=== PATIENT | male | born 1955 | race Caucasian/White ===

== ENCOUNTER 2019-03-30 06:14 | Inpatient (IN) | payer OTHER, BC ==
[2019-03-16 14:48] VITALS: BMI 34.9
[2019-03-30] MEDS ORDERED: TRANEXAMIC ACID 1000 MG/10 ML VIAL IVPUSH ONE (07:10)
[2019-03-30] MEDS ORDERED: CELECOXIB 200 MG CAPSULE PO ONE (07:10)
[2019-03-30] MEDS ORDERED: CEFAZOLIN 2 GM/D5W 2 GM/50 ML ML IVPB ONE (07:10)
[2019-03-30] MEDS ORDERED: CELECOXIB 200 MG CAPSULE ONE (07:42)
--- NOTE | 2019-03-30 07:58 | HP ---
Satellite [facility] - Chief Complaint Chief Complaint: right hip pain - Past Medical History Allergies/Adverse Reactions: Allergies Allergy/AdvReac Type Severity Reaction Status Date / Time No Known Allergies Allergy Verified 03/30/19 07:43 - Current Medications Current Medications: Home Medications Medication Instructions Recorded Aspirin [ASA -] 81 mg PO DAILY 03/16/19 Atorvastatin Ca [Lipitor] 40 mg PO HS 03/16/19 Bisoprolol Fumarate 5 mg PO DAILY 03/16/19 Clopidogrel Bisulfate [Plavix] 75 mg PO DAILY 03/16/19 Glipizide Xl [Glucotrol Xl -] 5 mg PO DAILY 03/16/19 [place]-3 Fatty Acids/Fish Oil [Fish 1 each PO QID 03/16/19 Oil 1,000 mg Capsule] Tamsulosin HCl [Flomax] 0.4 mg PO DAILY 03/16/19 Satellite Physical Exam - Physical Examination Vital Signs: Vital Signs Period Temp Pulse Resp BP Sys/Ty Pulse Ox Last 24 Hr 97.6 F 69 18 126/76 General Appearance: Well Nourished, Well Developed, Alert & Oriented x3 ENT: Clear Lung: Normal air movement Extremities: Other (right hip- + ttp, decr rom, nvi, xrays show grade 4 hip djd) Neurological: Intact, Alert, Oriented Satellite Impression/Plan - Impression/Plan Impression: right hip djd Operative Procedure: right rochelle thr Date to be Performed: 03/30/19
[2019-03-30] MEDS ORDERED: MIDAZOLAM HCL 2 MG/2 ML SINGLE DOSE VIAL ONE (08:00)
[2019-03-30] MEDS ORDERED: DEXAMETHASONE SOD PHOSPHATE/PF 10 MG/ML SDV ONE (08:08)
[2019-03-30] MEDS ORDERED: VANCOMYCIN 1,000 MG VIAL (RESTRICTED TO ID ONLY) ONE (09:10)
[2019-03-30] MEDS ORDERED: ceFAZolin SODIUM 1 GM VIAL ONE ×2 (09:10→09:51)
[2019-03-30] MEDS ORDERED: PROPOFOL 20 ML ONE (09:29)
[2019-03-30] MEDS ORDERED: SUCCINYLCHOLINE CHLORIDE 200 MG/10 ML SYRINGE ONE (09:29)
[2019-03-30] MEDS ORDERED: ONDANSETRON 4 MG/2 ML VIAL IVPUSH PRN ×2 (09:42→11:52)
[2019-03-30] MEDS ORDERED: MAG HYDROX/AL HYDROX/SIMETH 30 ML UNIT-DOSE CUP PO PRN (09:42)
[2019-03-30] MEDS ORDERED: MAGNESIUM HYDROX 2400MG/30ML ORAL SUSPENSION 30 ML CUP PO PRN (09:42)
[2019-03-30] MEDS ORDERED: ROCURONIUM BROMIDE 50 MG/5 ML VIAL ONE (09:43)
[2019-03-30] MEDS ORDERED: TRANEXAMIC ACID 1000 MG/10 ML VIAL ONE ×2 (09:43→11:06)
[2019-03-30] MEDS ORDERED: LACTATED RINGERS SOLUTION 1,000 ML IV SCH ×2 (09:45→12:00)
[2019-03-30] MEDS ORDERED: DEXAMETHASONE SOD PHOSPHATE 4 MG/1 ML VIAL ONE (09:50)
[2019-03-30] MEDS ORDERED: CLOPIDOGREL BISULFATE 75 MG TABLET (FP) PO SCH (10:00)
[2019-03-30] MEDS ORDERED: PATIENT'S OWN MEDICATION (NON-FORMULARY) (Bisoprolol Fumarate [Bisoprolol Fumarate] 5 MG) PO SCH (10:00)
[2019-03-30] MEDS ORDERED: ASPIRIN 81 MG CHEWABLE TABLETS PO SCH (10:00)
[2019-03-30] MEDS ORDERED: NEOSTIGMINE METHYLSULFATE 0.5 MG/ML - 10 ML MDV ONE (10:56)
[2019-03-30] MEDS ORDERED: GLYCOPYRROLATE 0.2 MG/1 ML VIAL ONE (10:57)
[2019-03-30] MEDS ORDERED: ONDANSETRON 4 MG/2 ML VIAL ONE ×2 (10:59→11:46)
--- NOTE | 2019-03-30 11:17 | OP ---
Operative Note - Note: Operative Date: 03/30/19 (liz) Pre-Operative Diagnosis: right hip djd Operation: right rochelle thr Post-Operative Diagnosis: Same as Pre-op Surgeon: Leonardo Levine Inbound [employer]ient Logistics Specialist: Justin Butcher Anesthesiologist/WORD PROCESSOR OPERATOR: Brissa Abdalla Anesthesia: Spinal, Local Specimens Removed: femoral head Estimated Blood Loss (mls): 200
[2019-03-30] MEDS: Insulin (LOG) Aspart 100 UNITS/ML VIAL SQ ONE ×2 (11:50→12:45)
[2019-03-30] MEDS ORDERED: oxyCODONE HCL 5 MG TABLET PO PRN (11:52)
[2019-03-30] MEDS ORDERED: ACETAMINOPHEN 1000 MG/100 ML VIAL (NON FORMULARY) IVPB ONE (11:52)
--- NOTE | 2019-03-30 12:01 | SPEC ---
DATE OF OPERATION: 03/30/2019 PREOPERATIVE DIAGNOSIS: Degenerative joint disease, right hip. POSTOPERATIVE DIAGNOSIS: Degenerative joint disease, right hip. PROCEDURE PERFORMED: Right total hip replacement with robotic-assisted navigation (MAKOplasty). SURGICAL ATTENDING: Leonardo Levine MD CHANCELLOR: MONISHA Soliz ANESTHESIA: Regional and general. CLOSURE: A [place] hip system with a 52 Trident II press-fit acetabular shell and Number 8 Accolade II press-fit femoral stem. A 36, +2.5 ceramic femoral head. Number 1 Vicryl for fascia, 0 and 2-0 subcutaneous, 3-0 V-Loc for skin, 4-0 undyed Vicryl for pin sites. ESTIMATED BLOOD LOSS: Approximately 150 mL. COMPLICATIONS: None. CONDITION: To the recovery room in stable condition. DESCRIPTION OF PROCEDURE: The patient was taken to the operating room on March 30, 2019. General and regional anesthesia was administered by the anesthesiologist. IV Kefzol and TXA were administered prophylactically prior to the case. The patient was placed in the lateral decubitus position will all prominences well-padded. The right hip area was prepped and draped in the usual sterile fashion. Using 3 small stab incisions over the iliac crest, 3 threaded pins were drilled in power fashion through the 2 tables of the crest. These pins were fastened and the navigation array for the [place] navigation system. Next, a 12 to 15-cm curved longitudinal incision over the posterolateral aspect of the greater trochanter was incised. Hemostasis was achieved with Bovie cautery. Sharp dissection was carried down to level of the fascia. The fascia was opened the entire length of the incision, spreading the fibers of the gluteus santy in the direction of origin. A Charnley retractor was placed in this layer. Care was taken not to impale the sciatic nerve. The short external rotators were detached off the insertion of the greater trochanter and peeled off the capsule. A posterior capsulotomy was then performed. A check point was malleted into the greater trochanter and a point on the inferior pole of the patella was obtained as well. These 2 points were used to assess the preoperative offset and limb lengths of the hip. The hip was then dislocated. The femoral neck was then osteotomized down to the appropriate level as directed by the navigation device. Anterior and posterior retractors were placed, exposing the acetabulum. A circumferential labral excision was performed. A check point was malleted into the acetabulum as well. Multiple sites inside the acetabulum and around the rim were utilized to register the acetabulum with the navigation device. An excellent registration of less than 0.5 mm was obtained. The hip was then reamed with the appropriate reamer down to the appropriate depth, with the appropriate orientation and version as assessed on our preoperative plan for this patient. The reamer was removed and the acetabulum was inspected to have good bleeding surfaces throughout. The real acetabular cup was then malleted down into place, with the holes in the appropriate position, until an excellent fixation was obtained. No screws were necessary. The navigation device ensured appropriate orientation and version, with the depth as predetermined. The appropriate liner was then clipped into place. Attention was directed to the femur. The proximal femur was prepared by use a box chisel, a canal finder and serial broaches until the broach achieved excellent rigidity in the proximal femur with the appropriate version being applied. A calcar planer was used to smooth off the calcar flush with the trial components. A trial reduction with the appropriate head was done, and the hip was reduced. The hip was taken through a range of motion from full extension with external rotation to marked flexion and was stable at 90 degrees of flexion. It was stable to marked abduction and internal rotation, with a positive hang test and negative telescoping. Limb lengths were ascertained visually as well as with the navigation device to be within the targeted range for this patient. The trial component was removed. The real component was then malleted into place. The head was cold welded to the trunnion, and the hip was reduced. Range of motion, stability and limb lengths were as described in the trial component. Then the hip was pulse antibiotic irrigated. Vancomycin powder was placed in the hip joint. The capsule was closed. The fascia was then closed as well using number 1 Vicryl interrupted suture, 0 and 2-0 subcutaneous, and 3-0 V-Loc for the skin, 4-0 undyed Vicryl was used to close the pin sites after the pins were removed. All check points were also removed. Sterile Aquacel dressing was applied. The patient was awakened from anesthesia and transferred into the supine position. Bilateral SCDs, and an abduction pillow were placed. X-rays revealed excellent position of the components. The patient was transferred to the recovery room in stable condition, with no complications. Estimated blood loss was less than 100 mL. Manuela MAIER/[id number]
[2019-03-30] MEDS ORDERED: ACETAMINOPHEN INJECTION 100 ML IVPB ONE (12:15)
[2019-03-30] MEDS ORDERED: oxyCODONE HCL 5 MG TABLET ONE (12:41)
[2019-03-30] MEDS: oxyCODONE HCL 5 MG TABLET PO PRN ×4 (12:46→23:16)
[2019-03-30] MEDS: INSULIN SLIDING SCALE (NOVOLOG) 1 VIAL SQ SCH ×2 (18:03→21:40)
[2019-03-30] MEDS: CEFAZOLIN 2 GM/D5W 2 GM/50 ML ML IVPB SCH (18:04)
[2019-03-30] MEDS: SENNOSIDES/DOCUSATE COMBO (SENNA PLUS) TABLET (UD) PO SCH (21:36)
[2019-03-30] MEDS: ATORVASTATIN CA 40 MG TABLET (FP) PO SCH (21:36)
[2019-03-30] MEDS: TAMSULOSIN HCL 0.4 MG CAP PO SCH (21:37)
[2019-03-30] MEDS: oxyCODONE HCL 10 MG SUSTAINED ACTING TABLET PO SCH (21:37)
[2019-03-31] MEDS: CEFAZOLIN 2 GM/D5W 2 GM/50 ML ML IVPB SCH (01:13)
[2019-03-31] MEDS: oxyCODONE HCL 5 MG TABLET PO PRN ×4 (06:42→23:48)
[2019-03-31] MEDS: glipiZIDE-XL 5 MG TAB.ER.24 PO SCH (06:43)
[2019-03-31] MEDS: INSULIN SLIDING SCALE (NOVOLOG) 1 VIAL SQ SCH ×3 (06:47→22:06)
[2019-03-31 08:04] LABS: HEMATOCRIT 31.3 % (35.4-49); HEMOGLOBIN 9.6 GM/dl (11.7-16.9); MCH 20.8 pg (25.7-33.7); MCHC 30.5 g/dl (32.0-35.9); MEAN PLT VOLUME 8.3 fl (7.5-11.1); PLATELET COUNT 147 K/MM3 (134-434); RBC 4.59 M/mm3 (4.00-5.60); RDW 14.7 % (11.9-15.9); WHITE BLOOD COUNT 7.5 K/mm3 (4.0-10.8)
[2019-03-31] MEDS: ATENOLOL 50 MG TABLET (FP) PO SCH (09:31)
[2019-03-31] MEDS: SENNOSIDES/DOCUSATE COMBO (SENNA PLUS) TABLET (UD) PO SCH ×2 (09:31→21:16)
[2019-03-31] MEDS: PANTOPRAZOLE 40 MG TABLET (FP) PO SCH (09:32)
[2019-03-31] MEDS: MULTIVITAMINS (DAILY MVI) TABLET (FP) PO SCH (09:32)
[2019-03-31] MEDS: oxyCODONE HCL 10 MG SUSTAINED ACTING TABLET PO SCH (09:32)
[2019-03-31] MEDS: CLOPIDOGREL BISULFATE 75 MG TABLET (FP) PO SCH (09:32)
[2019-03-31] MEDS: ASPIRIN 81 MG CHEWABLE TABLETS PO SCH (09:33)
--- NOTE | 2019-03-31 09:41 | PN ---
Progress Note (short form) - Note Progress Note: Ortho Pt seen and examined s/p right rochelle thr pod #1 Selected Entries 03/31/19 06:00 Temperature 98.2 F Pulse Rate 77 Respiratory 17 Rate Blood Pressure 117/64 Laboratory Tests 03/31/19 07:09 WBC 7.5 Hgb 9.6 L Hct 31.3 L Plt Count 147 dressing c/d/i, calf soft, nt nvi a/p PT hip precautions dvt ppx pain control ok to d/c home today if stable after PT
--- NOTE | 2019-03-31 09:44 | PN ---
Progress Note, Physician Chief Complaint: AWAKE ALERT OFFERS NO COMPLAINTS DENIES FEVER OR CHILLS NO BM YET - Current Medication List Current Medications: Active Medications Al Hydroxide/Mg Hydroxide (Mylanta Oral Suspension -) 30 ml PO Q4H PRN PRN Reason: DYSPEPSIA Aspirin (Asa -) 81 mg PO DAILY [facility] Last Admin: 03/31/19 09:33 Dose: 81 mg Atenolol (Tenormin -) 50 mg PO DAILY [facility] Last Admin: 03/31/19 09:31 Dose: 50 mg Atorvastatin Calcium (Lipitor -) 40 mg PO HS [facility] Last Admin: 03/30/19 21:36 Dose: 40 mg Clopidogrel Bisulfate (Plavix -) 75 mg PO DAILY [facility] Last Admin: 03/31/19 09:32 Dose: 75 mg Glipizide (Glucotrol Xl -) 5 mg PO ACBK [facility] Last Admin: 03/31/19 06:43 Dose: 5 mg Lactated Ringer's (Lactated Ringers Solution) 1,000 mls @ 125 mls/hr IV ASDIR [facility] Last Admin: 03/30/19 14:14 Dose: 0 mls Insulin Aspart (Novolog Vial Sliding Scale -) 1 vial SQ ACHS [facility]; Protocol Last Admin: 03/31/19 06:47 Dose: 4 units Magnesium Hydroxide (Milk Of Magnesia -) 30 ml PO PRN PRN PRN Reason: CONSTIPATION Multivitamins/Minerals/Vitamin C (Tab-A-Vit -) 1 tab PO DAILY [facility] Last Admin: 03/31/19 09:32 Dose: 1 tab Ondansetron HCl (Zofran Injection) 4 mg IVPUSH Q6H PRN PRN Reason: NAUSEA Last Admin: 03/30/19 11:55 Dose: 4 mg Ondansetron HCl (Zofran Injection) 4 mg IVPUSH Q6H PRN PRN Reason: NAUSEA AND/OR VOMITING Oxycodone HCl (Roxicodone -) 10 mg PO Q3H PRN PRN Reason: PAIN LEVEL 6-10 Last Admin: 03/31/19 06:42 Dose: 10 mg Oxycodone HCl (Roxicodone -) 5 mg PO Q3H PRN PRN Reason: PAIN LEVEL 1-5 Last Admin: 03/31/19 02:33 Dose: 5 mg Oxycodone HCl (Oxycontin -) 10 mg PO BID [facility] Stop: 03/31/19 21:59 Last Admin: 03/31/19 09:32 Dose: 10 mg Pantoprazole Sodium (Protonix -) 40 mg PO DAILY [facility] Last Admin: 03/31/19 09:32 Dose: 40 mg Senna/Docusate Sodium (Pericolace -) 2 tablet PO BID [facility] Last Admin: 03/31/19 09:31 Dose: 2 tablet Tamsulosin HCl (Flomax -) 0.4 mg PO DAILY@2200 [facility] Last Admin: 03/30/19 21:37 Dose: 0.4 mg - Objective Vital Signs: Vital Signs Temperature 98.2 F 03/31/19 06:00 Pulse Rate 77 03/31/19 06:00 Respiratory Rate 16 03/31/19 08:24 Blood Pressure 117/64 03/31/19 06:00 O2 Sat by Pulse Oximetry (%) 98 03/31/19 08:24 Constitutional: Yes: Mild Distress Cardiovascular: Yes: Regular Rate and Rhythm Respiratory: Yes: WNL Gastrointestinal: Yes: Soft, Abdomen, Obese Genitourinary: Yes: WNL Musculoskeletal: Yes: Muscle Pain Edema: No Integumentary: Yes: WNL Wound/Incision: Yes: Clean/Dry Neurological: Yes: WNL ...Motor Strength: LLE, RLE Psychiatric: Yes: WNL Labs: CBC, BMP 03/31/19 07:09 Assessment/Plan S/P RIGHT HIP JAIMEE USING WALKER AND WALKING WITH SOME DIFFICULTY RECOMMEND TO CONTINUE REHAB HERE AT [facility] FOR 1 MORE DAY ORTHOPEDIC F/U APPRECIATED BGM CONTROLLED ADDING STOOL SOFTENERS TO COUNTERACT OPIOD BOWEL PAIN CONTROLLED AT THIS POINT H/O CAD S/P STENT X2 DENIES CHEST PAIN ON ASA/PLAVIX/ATENOLOL/LIPITOR CONTINUE. HANNAH STOCKING ALSO ON/B/L LEGS DC PLANNING TOMORROW
--- NOTE | 2019-03-31 09:58 | PN ---
Progress Note (short form) - Note Progress Note: 63M POD1 s/p R THR under spinal anesthetic with peripheral nerve block for post operative pain relief doing well. Pt states that pain is well controlled and reports no anesthetic complications. AVSS. Continue current regimen.
[2019-03-31] MEDS ORDERED: INSULIN (NOVOLOG) ASPART 100 UNITS/ML 10ML VIAL ONE ×2 (12:13→22:03)
[2019-03-31] MEDS: ATORVASTATIN CA 40 MG TABLET (FP) PO SCH (21:17)
[2019-03-31] MEDS: TAMSULOSIN HCL 0.4 MG CAP PO SCH (21:17)
--- NOTE | 2019-04-01 00:10 | HOSP ---
Subjective - Review of Symptoms Events since last encounter: Summoned to patient's room as patient complaining of swollen testes and difficulty urinating. Patient seen and examined, MELISSA Mendez present during exam. Subj: patient feels his scotum is slightly swollen and it is taking him longer than usual to urinate. Denies pain, dysuria, hematuria, frequency, urgency. Takes flomax on a daily basis, follows with a urologist annually, last exam was unremarkable with normal PSA. Exam: Scrotum: no significant swelling, no erythema, no tenderness on palpation, no discharge Bladder scan: 50cc's Assessment --difficulty urinating may be positional as patient usually stands and is now using a urinal --swelling is not appreciable, may be mild dependent edema, should improve with mobilization --monitor renal function, bmp in am Physical Examination Vital Signs: Vital Signs Temperature 99.0 F 03/31/19 21:12 Pulse Rate 88 03/31/19 21:12 Respiratory Rate 19 03/31/19 21:12 Blood Pressure 112/53 L 03/31/19 21:12 O2 Sat by Pulse Oximetry (%) 96 03/31/19 21:12 Labs: CBC, BMP 03/31/19 07:09
[2019-04-01] MEDS: oxyCODONE HCL 5 MG TABLET PO PRN ×3 (02:53→09:19)
[2019-04-01] MEDS: glipiZIDE-XL 5 MG TAB.ER.24 PO SCH (06:11)
[2019-04-01] MEDS: INSULIN SLIDING SCALE (NOVOLOG) 1 VIAL SQ SCH ×2 (06:12→11:41)
[2019-04-01 08:13] LABS: HEMATOCRIT 27.8 % (35.4-49); HEMOGLOBIN 8.7 GM/dl (11.7-16.9); MCH 21.2 pg (25.7-33.7); MCHC 31.2 g/dl (32.0-35.9); MEAN CELL VOLUME 67.8 fl (80-96); MEAN PLT VOLUME 8.1 fl (7.5-11.1); PLATELET COUNT 131 K/MM3 (134-434); RDW 14.8 % (11.9-15.9); WHITE BLOOD COUNT 5.9 K/mm3 (4.0-10.8)
[2019-04-01 08:17] LABS: CREATININE 0.8 mg/dl (0.55-1.3); POTASSIUM 3.6 mmol/L (3.5-5.1)
--- NOTE | 2019-04-01 08:32 | PN ---
Progress Note (short form) - Note Progress Note: Ortho Pt seen and examined s/p right rochelle thr pod #2 Selected Entries 04/01/19 05:00 Temperature 97.8 F Pulse Rate 84 Respiratory 18 Rate Blood Pressure 112/60 Laboratory Tests 04/01/19 07:20 WBC 5.9 Hgb 8.7 L Hct 27.8 L Plt Count 131 L dressing c/d/i, calf soft, nt nvi a/p PT hip precautions dvt ppx pain control d/c home today f/u in 1 week
--- NOTE | 2019-04-01 08:33 | DS ---
Physical Examination Vital Signs: Vital Signs Temperature 97.8 F 04/01/19 05:00 Pulse Rate 84 04/01/19 05:00 Respiratory Rate 18 04/01/19 05:00 Blood Pressure 112/60 04/01/19 05:00 O2 Sat by Pulse Oximetry (%) 93 L 04/01/19 05:00 Labs: CBC, BMP 04/01/19 07:20 04/01/19 07:20 Discharge Summary Problems reviewed: Yes Reason For Visit: OSTEOARTHRITIS Procedures: Principal: right thr Hospital Course: admitted for elective right rochelle thr, post-op as per protocol, stable for d/c Condition: Good - Instructions Diet, Activity, Other Instructions: Post-op Instructions-Total Hip Replacement Call the office for a follow-up appointment in 1 week - [phone] Aspirin 325mg daily for 6 weeks. Pain medication was sent into your pharmacy. Apply Graduated Compression Stockings (TEDs) to both lower extremities- remove daily for hygiene ONLY Apply Sequential Compression Device (SCDs) to both Lower extremities remove for PT and hygiene ONLY Apply cold packs to affected area for 15 minutes every 2 hours. Physical Therapist will come to your home for the first 5 days. You will be set up with outpatient PT at your first post-operative visit. Patient may ambulate as tolerated-encourage self care (at least every 2-3 hours while awake) with walker or cane Maintain Aquacel (waterproof) dressing to operative wound (will be removed by surgeon at first office visit) Shower with Aquacel dressing in place-if Aquacel integrity compromised, remove and apply dry sterile dressing and notify Orthopedist. DO NOT SHOWER unless Orthopedists approves without Aquacel dressing CONTACT THE OFFICE FOR ANY CHANGE IN YOUR CONDITION (for example-fever greater than 102 degrees, excessive bleeding from operative site, purulent drainage, severe swelling or pain) GO TO THE EMERGENCY ROOM IF THERE IS A MEDICAL EMERGENCY Hip Precautions: * Keep a rolled towel under affected heel while in bed or chair (to keep knee in extension) * Dependent upon approach: * Posterior - do not cross legs; do not sit on low chairs or toilets. * If you have any questions, please do not hesitate to call the office - [phone]. Referrals: Leonardo Levine MD [Staff Physician] - Disposition: VNS/HOME HEALTH CARE - Home Medications Comprehensive Discharge Medication List: Ambulatory Orders Aspirin [ASA -] 81 mg PO DAILY 03/16/19 Atorvastatin Ca [Lipitor] 40 mg PO HS 03/16/19 Bisoprolol Fumarate 5 mg PO DAILY 03/16/19 Clopidogrel Bisulfate [Plavix] 75 mg PO DAILY 03/16/19 Glipizide Xl [Glucotrol Xl -] 5 mg PO DAILY 03/16/19 [place]-3 Fatty Acids/Fish Oil [Fish Oil 1,000 mg Capsule] 1 each PO QID 03/16/19 Tamsulosin HCl [Flomax] 0.4 mg PO DAILY 03/16/19 Oxycodone HCl/Acetaminophen [Percocet 5-325 mg Tablet -] 1 - 2 tab PO Q6H #50 tab MDD 8 03/30/19
[2019-04-01] MEDS: SENNOSIDES/DOCUSATE COMBO (SENNA PLUS) TABLET (UD) PO SCH (09:18)
[2019-04-01] MEDS: ATENOLOL 50 MG TABLET (FP) PO SCH (09:18)
[2019-04-01] MEDS: PANTOPRAZOLE 40 MG TABLET (FP) PO SCH (09:18)
[2019-04-01] MEDS: ASPIRIN 81 MG CHEWABLE TABLETS PO SCH (09:18)
[2019-04-01] MEDS: CLOPIDOGREL BISULFATE 75 MG TABLET (FP) PO SCH (09:19)
[2019-04-01] MEDS: MULTIVITAMINS (DAILY MVI) TABLET (FP) PO SCH (09:19)
[2019-04-01 10:15] VITALS: BP 103/51; TEMP 97.9
[2019-04-01 12:18] VITALS: PULSE 78
--- NOTE | 2019-04-01 16:11 | PATH ---
Surgical Pathology Report Patient Name: PRECIOUS NICHOLE Med. Rec. #: [id number] /Age/Gender: 1955 (Age: 63) / M Account: [id number] Location: [facility] MED-SURG Taken: 03/30/2019 Received: 03/30/2019 Reported: 04/01/2019 Physicians: Leonardo Levine M.D. Specimen(s) Received RIGHT FEMORAL HEAD Clinical History Osteoarthritis right hip Final Diagnosis FEMORAL HEAD, RIGHT, TOTAL HIP REPLACEMENT: DEGENERATIVE JOINT DISEASE. Electronically Signed Loretta Almeida M.D. Gross Description Received in formalin, labeled "right femoral head," is a 4.7 x 4.7 x 4.2 cm. femoral head with no femoral neck attached. The margin of resection is smooth. The articular surface displays a 2.2 cm in greatest dimension area of eburnation. The remaining articular surface is jiménez and diffusely granular. The underlying trabecular bone is yellow and hard. A business center representative section is submitted in one cassette, following decalcification. 03/31/2019 [facility]03/31/2019
== END 2019-04-01 12:55 | disposition home health service (06) | DRG 470 ==
LOC: FM/S 06:14
PROVIDERS: ADMIT Orthopaedic Surgery; ATTEND Orthopaedic Surgery
PROC: 8E0W0CZ Robotic Assisted Procedure of Trunk Region, Open Approach (ICD-10-PCS; 2019-03-30)
PROC: 0SR90JZ Replacement of Right Hip Joint with Synthetic Substitute, Open Approach (ICD-10-PCS; principal; 2019-03-30 10:07)
DX: M16.11 Unilateral primary osteoarthritis, right hip (principal); I25.10 Atherosclerotic heart disease of native coronary artery without angina pectoris; I10 Essential (primary) hypertension; E11.9 Type 2 diabetes mellitus without complications; Z95.5 Presence of coronary angioplasty implant and graft
CPT/HCPCS: 36415; 73502-TC-RT-FY; 80048; 82962; 85027; 87389; 94760; 97116-GP; 97163-GP; J0131